=== PATIENT | female | born 1995 | race Caucasian/White ===

== ENCOUNTER 2021-08-10 10:05 | Observation (INO) | payer BC ==
[2021-08-10 10:49] VITALS: BP 108/57
[2021-08-10 11:22] LABS: Amphetamine,Urine NEGATIVE (NEGATIVE); Barbiturate,Urine NEGATIVE (NEGATIVE); Benzodiazepine,Urine NEGATIVE (NEGATIVE); Cocaine,Urine NEGATIVE (NEGATIVE); Methadone,Urine NEGATIVE (NEGATIVE); Opiate,Urine NEGATIVE (NEGATIVE); PCP,Urine NEGATIVE (NEGATIVE); THC,Urine NEGATIVE (NEGATIVE)
[2021-08-10 12:10] LABS: Basophil (Absolute #) 0.03 x10^3/uL (0-0.4); Eosinophil % 0.2 % (0.00-5.0); Eosinophil (Absolute #) 0.02 x10^3/uL (0-0.5); Hematocrit 32.8 % (35-47); Hemoglobin 10.6 g/dL (12.0-16.0); Lymphocytes % 8.4 % (24.0-44.0); Mean Cell Volume 90.6 fL (78-100); Mean Corpuscular Hemoglobin 29.3 pg (26-32); Mean Corpuscular Hgb Concent. 32.3 g/dL (32-36); Mean Platelet Volume 10.3 fL (7.5-11.0); Monocyte (Absolute #) 0.41 x10^3/uL (0.0-1.3); Monocytes % 3.8 % (0.0-12.0); Neutrophil % 86.7 % (36.0-66.0); Platelet Count 111 x10^3/uL (150-450); Red Blood Count 3.62 x10^6/uL (4.1-5.4); Red Cell Distribution Width 13.6 % (11.5-14.0); White Blood Count 10.7 x10^3/uL (4.0-10.5)
[2021-08-10 12:20] VITALS: PULSE 67
--- NOTE | 2021-08-10 12:36 | XRAY ---
Indication: Right upper quadrant pain, nausea, and vomiting. 22 weeks gestation. Two-dimensional gallbladder sonogram performed. Comparison: None Gallbladder normally distended without gallstones, wall thickening, or pericholecystic fluid. Common bile duct measures 4.4 mm. No intrahepatic biliary distention. Right kidney measures 11.6 cm in length and demonstrates mild hydronephrosis presumed related to . Remaining visualized liver and pancreas are sonographically unremarkable. Impression: Right-sided hydronephrosis presumed related to . Remaining gallbladder sonogram is negative.
[2021-08-10 12:37] LABS: ALKALINE PHOSPHATASE 70 U/L (38-126); AMYLASE 66 U/L (30-110); ANION GAP 11.8 MEQ/L (5-15); BLOOD UREA NITROGEN 10 mg/dL (7-17); CHLORIDE 102 mmol/L (98-107); Calcium 8.9 mg/dL (8.4-10.2); Carbon Dioxide 25 mmol/L (22-30); Creatinine 1 0.43 mg/dL (0.52-1.04); EST GLOMERULAR FILTRATION RATE > 60.0 ML/MIN; Glucose 88 mg/dL (74-106); LIPASE 38 U/L (23-300); Potassium 3.9 mmol/L (3.5-5.1); SGOT/AST 29 U/L (14-36); SGPT/ALT 32 U/L (0-35); SODIUM 136 mmol/L (137-145); Total Protein 6.8 g/dL (6.3-8.2)
[2021-08-10 13:39] LABS: Appearance CLOUDY (CLEAR); Bilirubin NEGATIVE (NEGATIVE); Dipstick done @ ? MAIN LAB; Glucose NEGATIVE (NEGATIVE); Ketones NEGATIVE (NEGATIVE); Nitrite NEGATIVE (NEGATIVE); Protein,Urine Dip NEGATIVE (Negative); RBC SMALL Ery/ul (0-5); Specific Gravity >=1.030 (1.005-1.025); Urobilinogen 0.2 mg/dL (0-1)
[2021-08-10 13:41] LABS: Bacteria RARE /HPF (NEGATIVE); Epithelial Cells RARE /HPF (FEW); Mucus SLIGHT /HPF (NEGATIVE)
[2021-08-10 13:44] LABS: Urine Cultured Indicated? YES
== END 2021-08-10 14:15 | disposition home or self-care (01) ==
LOC: OB 10:05
PROVIDERS: ADMIT Obstetrics & Gynecology; ATTEND Obstetrics & Gynecology
DX: Z34.02 Encounter for supervision of normal first pregnancy, second trimester (principal); Z3A.22 22 weeks gestation of pregnancy
CPT/HCPCS: 36415; 76705; 80053; 80307; 81015; 82150; 83690; 85025; 87086; G0378

== ENCOUNTER 2023-08-09 05:13 | Observation (INO) | payer BC ==
[2023-08-09 06:22] LABS: Amphetamine,Urine NEGATIVE (NEGATIVE); Barbiturate,Urine NEGATIVE (NEGATIVE); Benzodiazepine,Urine NEGATIVE (NEGATIVE); Cocaine,Urine NEGATIVE (NEGATIVE); Methadone,Urine NEGATIVE (NEGATIVE); Opiate,Urine NEGATIVE (NEGATIVE); PCP,Urine NEGATIVE (NEGATIVE); THC,Urine NEGATIVE (NEGATIVE)
[2023-08-09] MEDS ORDERED: Lactated Ringers 1,000 ML IV ONE (06:26)
[2023-08-09] MEDS ORDERED: BRETHINE 1 MG/ML ONE (06:26)
[2023-08-09] MEDS: Lactated Ringers 1,000 ML IV SCH (06:41)
[2023-08-09] MEDS: BRETHINE 1 MG/ML SQ ONE (06:41)
[2023-08-09 06:48] LABS: Absolute Neutrophil Ct (ANC) 6.88 x10^3/uL (1.4-6.9); BASOPHIL % 0.2 % (0.0-0.4); Basophil (Absolute #) 0.02 x10^3/uL (0-0.4); Eosinophil % 1.3 % (0.00-5.0); Eosinophil (Absolute #) 0.11 x10^3/uL (0-0.5); Hematocrit 31.1 % (35-47); Hemoglobin 10.8 g/dL (12.0-16.0); IMMATURE GRAN # 0.06 x10^3u/L (0.00-0.03); IMMATURE GRAN % 0.7 % (0.00-0.4); Lymphocyte (Absolute #) 0.92 x10^3/uL (1.0-4.6); Lymphocytes % 10.9 % (24.0-44.0); Mean Cell Volume 87.9 fL (78-100); Mean Corpuscular Hemoglobin 30.5 pg (26-32); Mean Corpuscular Hgb Concent. 34.7 g/dL (32-36); Mean Platelet Volume 10.9 fL (7.5-11.0); Monocyte (Absolute #) 0.47 x10^3/uL (0.0-1.3); Monocytes % 5.6 % (0.0-12.0); Neutrophil % 81.3 % (36.0-66.0); Platelet Count 92 x10^3/uL (150-450); Red Blood Count 3.54 x10^6/uL (4.1-5.4); Red Cell Distribution Width 13.2 % (11.5-14.0); White Blood Count 8.5 x10^3/uL (4.0-10.5)
[2023-08-09 07:23] LABS: ABO TYPING A; Antibody Screen NEGATIVE (NEGATIVE); RH TYPING POSITIVE
[2023-08-09 07:39] LABS: Slide Review 1 YES
[2023-08-09 08:28] LABS: Appearance TURBID (CLEAR); Bilirubin MODERATE (NEGATIVE); Glucose NEGATIVE (NEGATIVE); Ketones SMALL-15 (NEGATIVE)
[2023-08-09 08:29] LABS: Nitrite POSITIVE (NEGATIVE); Ph 5.5 (5-6); Protein,Urine Dip >=300 (Negative); RBC LARGE Ery/ul (0-5); Urobilinogen 1 mg/dL (0-1)
[2023-08-09 08:30] LABS: Bacteria Many /HPF (None Seen); Epithelial Cells None Seen /HPF (None Seen); Non-Squamous Epithelial Cells None Seen /HPF (None Seen); RBC >100 /HPF (0-5); WBC 51-100 /HPF (0-5)
[2023-08-09 08:31] LABS: ADD URINE CULTURE? YES (NO)
--- NOTE | 2023-08-09 08:33 | XRAY ---
Indication: Vaginal bleeding. Two-dimensional limited OB ultrasound performed. Comparison: None Single intrauterine in cephalic presentation. heart rate 149 BPM. Posterior fundal placenta without abnormal retroplacental fluid. Four-quadrant [place] is 13.5 cm. Comment: Preliminary report was given.
[2023-08-09 09:11] VITALS: RESP 16
--- NOTE | 2023-08-09 09:40 | PCM.HP ---
History of Present Illness - Chief Complaint Chief Complaint: Vaginal bleeding, ob check History of Present Illness: is a 28 year old female at 34 5/7 wks EGA who has been following with Dr Moya at [facility] for her , she awoke early this morning with a gush of fluid and thought she had SROM, then looked and it was all blood. she has some mild tightening of her uterus but no real pain, no recent trauma. 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 - Review of Systems Constitutional: No Fever, No Chills Respiratory: No Cough, No Short Of Breath Cardiac: No Chest Pain, No Edema, No Syncope Abdominal/Gastrointestinal: No Abdominal Pain, No Nausea, No Vomiting, No Diarrhea Genitourinary Symptoms: Vaginal Bleeding Skin: No Rash Medications & Allergies Home Medications: Home Medication List 21/Iron Fu/Folic Acid [ Complete Caplet] 1 dose PO DAILY 08/10/21 [History Confirmed 08/09/23] Allergies/Adverse Reactions: Allergies Allergy/AdvReac Type Severity Reaction Status Date / Time adhesive tape Allergy Mild Blisters Verified 08/09/23 06:01 - Past Medical History Past Medical History: Yes Neurological History: No Pertinent History ENT History: No Pertinent History Cardiac History: No Pertinent History Respiratory History: No Pertinent History Endocrine Medical History: No Pertinent History Musculoskelatal History: No Pertinent History GI Medical History: No Pertinent History History: No Pertinent History Pyscho-Social History: No Pertinent History Reproductive Disorders: No Pertinent History Comment: 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 Jugular removed for the shunt from left side. - Female History Are you now?: Yes - Past Surgical History Past Surgical History: Yes Neuro Surgical History: No Pertinent History Cardiac History: No Pertinent History Respiratory Surgery: No Pertinent History GI Surgical History: Other Other Surgical History: Yolk sac tumor with chemo at 3 YO, then Rexshunt surgery at 11 or 12 YO with removal of left jugular vein for the shunt. Upside down T scar on upper abdomen, lots of internal scar tissue per patient. - Social History Smoking Status: Never smoker Exposure to second hand smoke: No Alcohol: None Drug Use: none - Social Determinants of Health Will the patient participate in the screening: Yes Do you worry about a steady place to live?: No Do you have any problems with any of the following?: No known problems In the past 12 months,have you had to go without utilities?: No Have you or anyone in your house had to go without enough: No Transportation Issues: No Has anyone in your support network made you feel unsafe?: No Does the patient want assistance with any of the above?: No - Physical Exam Vital Signs: Vital Signs - 24 hr Temp Pulse Resp BP BP Pulse Ox 08/09/23 09:15 83 16 121/66 97 08/09/23 08:15 102 H 16 124/83 96 08/09/23 06:58 82 20 97 08/09/23 06:00 78 20 118/63 97 08/09/23 05:26 97.5 F 88 18 121/78 97 General Appearance: no apparent distress Neurologic Exam: alert, oriented x 3 Respiratory Exam: normal breath sounds, lungs clear, No respiratory distress Cardiovascular Exam: regular rate/rhythm, normal heart sounds, normal peripheral pulses Gastrointestinal/Abdomen Exam: soft (gravid) Pelvic Exam: other (SVE 2cm/70%/-1 no change from previously documented check, mild blood present during exam, no obvious active bleeding) Results - Labs Lab/Micro Results: Lab Results-Last 24 Hours 08/09/23 08/09/23 08/09/23 Range/Units 05:22 06:35 06:37 WBC 8.5 (4.0-10.5) x10^3/uL RBC 3.54 L (4.1-5.4) x10^6/uL Hgb 10.8 L (12.0-16.0) g/dL Hct 31.1 L (35-47) % MCV 87.9 (78-100) fL MCH 30.5 (26-32) pg MCHC 34.7 (32-36) g/dL RDW 13.2 (11.5-14.0) % Plt Count 92 L (150-450) x10^3/uL MPV 10.9 (7.5-11.0) fL Gran % 81.3 H (36.0-66.0) % Immature Gran % (Auto) 0.7 H (0.00-0.4) % Nucleat RBC Rel Count 0.0 (0.00-0.1) % Eos # (Auto) 0.11 (0-0.5) x10^3/uL Immature Gran # (Auto) 0.06 H (0.00-0.03) x10^3u/L Absolute Lymphs (auto) 0.92 L (1.0-4.6) x10^3/uL Absolute Monos (auto) 0.47 (0.0-1.3) x10^3/uL Absolute Nucleated RBC 0.00 (0.00-0.01) x10^3u/L Lymphocytes % 10.9 L (24.0-44.0) % Monocytes % 5.6 (0.0-12.0) % Eosinophils % 1.3 (0.00-5.0) % Basophils % 0.2 (0.0-0.4) % Absolute Granulocytes 6.88 (1.4-6.9) x10^3/uL Basophils # 0.02 (0-0.4) x10^3/uL Urine Color RED A (YELLOW) Urine Appearance TURBID (CLEAR) Urine pH 5.5 (5-6) Ur Specific [place] 1.020 (1.005-1.025) POC Urine Protein Conf >=300 A (Negative) Urine Ketones SMALL-15 A (NEGATIVE) Urine Nitrite POSITIVE A (NEGATIVE) Urine Bilirubin MODERATE A (NEGATIVE) Urine Urobilinogen 1 A (0-1) mg/dL Urine Leukocytes LARGE A (NEGATIVE) Urine RBC LARGE A (0-5) Javier/ul Urine Microscopic RBC >100 A (0-5) /HPF Urine Microscopic WBC 51-100 A (0-5) /HPF Ur Epithelial Cells None Seen (None Seen) /HPF U Non-Squamous Epi Cells None Seen (None Seen) /HPF Urine Bacteria Many A (None Seen) /HPF Urine Culture Reflexed YES (NO) Urine Glucose NEGATIVE (NEGATIVE) mg/dL Urine Opiates Level NEGATIVE (NEGATIVE) Ur Methadone NEGATIVE (NEGATIVE) Urine Barbiturates NEGATIVE (NEGATIVE) Ur Phencyclidine (PCP) NEGATIVE (NEGATIVE) Urine Amphetamine NEGATIVE (NEGATIVE) U Benzodiazepine Level NEGATIVE (NEGATIVE) Urine Cocaine NEGATIVE (NEGATIVE) Urine Marijuana (THC) NEGATIVE (NEGATIVE) Slides for Path Review YES ABO Group Rh Factor Antibody Screen (NEGATIVE) 08/09/23 Range/Units 06:37 WBC (4.0-10.5) x10^3/uL RBC (4.1-5.4) x10^6/uL Hgb (12.0-16.0) g/dL Hct (35-47) % MCV (78-100) fL MCH (26-32) pg MCHC (32-36) g/dL RDW (11.5-14.0) % Plt Count (150-450) x10^3/uL MPV (7.5-11.0) fL Gran % (36.0-66.0) % Immature Gran % (Auto) (0.00-0.4) % Nucleat RBC Rel Count (0.00-0.1) % Eos # (Auto) (0-0.5) x10^3/uL Immature Gran # (Auto) (0.00-0.03) x10^3u/L Absolute Lymphs (auto) (1.0-4.6) x10^3/uL Absolute Monos (auto) (0.0-1.3) x10^3/uL Absolute Nucleated RBC (0.00-0.01) x10^3u/L Lymphocytes % (24.0-44.0) % Monocytes % (0.0-12.0) % Eosinophils % (0.00-5.0) % Basophils % (0.0-0.4) % Absolute Granulocytes (1.4-6.9) x10^3/uL Basophils # (0-0.4) x10^3/uL Urine Color (YELLOW) Urine Appearance (CLEAR) Urine pH (5-6) Ur Specific [place] (1.005-1.025) POC Urine Protein Conf (Negative) Urine Ketones (NEGATIVE) Urine Nitrite (NEGATIVE) Urine Bilirubin (NEGATIVE) Urine Urobilinogen (0-1) mg/dL Urine Leukocytes (NEGATIVE) Urine RBC (0-5) Javier/ul Urine Microscopic RBC (0-5) /HPF Urine Microscopic WBC (0-5) /HPF Ur Epithelial Cells (None Seen) /HPF U Non-Squamous Epi Cells (None Seen) /HPF Urine Bacteria (None Seen) /HPF Urine Culture Reflexed (NO) Urine Glucose (NEGATIVE) mg/dL Urine Opiates Level (NEGATIVE) Ur Methadone (NEGATIVE) Urine Barbiturates (NEGATIVE) Ur Phencyclidine (PCP) (NEGATIVE) Urine Amphetamine (NEGATIVE) U Benzodiazepine Level (NEGATIVE) Urine Cocaine (NEGATIVE) Urine Marijuana (THC) (NEGATIVE) Slides for Path Review ABO Group A Rh Factor POSITIVE Antibody Screen NEGATIVE (NEGATIVE) - Radiology Impressions Radiology Exams & Impressions: Radiology Procedures Category Date Time Status OB LIMITED [US] Urgent Exams 08/09/23 05:35 Completed Assessment/Plan (1) contractions Current Visit: Yes Status: Acute Assessment & Plan: fluids were given, terb x 1 improved for a short period. no progressive cervical dilation. will try po nifedipine at this time and continue to monitor Code(s): O47.00 - FALSE LABOR BEFORE 37 COMPLETED WEEKS OF GEST, UNSP TRI (2) Third trimester bleeding Current Visit: Yes Status: Acute Assessment & Plan: ultrasound shows normal placenta, no previa and no abruption. [place] 13. heart tracing is reactive and category 1 Code(s): O46.93 - ANTEPARTUM HEMORRHAGE, UNSPECIFIED, THIRD TRIMESTER (3) Thrombocytopenia Current Visit: Yes Status: Acute
[2023-08-09] MEDS: PROCARDIA 10 MG PO STA (09:57)
[2023-08-09] MEDS ORDERED: Lactated Ringers 1,000 ML IV SCH (10:00)
[2023-08-09] MEDS: Celestone Soluspan 6MG/ML IM STA (10:04)
[2023-08-09 10:28] VITALS: TEMP 97.9
[2023-08-09] MEDS ORDERED: Magnesium Sulfate 40 Gm/1000 Ml H2O Premix*** 1,000 ML IV ONE (12:14)
[2023-08-09] MEDS: Magnesium Sulfate 40 Gm/1000 Ml H2O Premix*** 1,000 ML IV SCH (12:36)
[2023-08-09 15:28] VITALS: BP 120/72; PULSE 88; O2SAT 96
== END 2023-08-09 13:58 | disposition home or self-care (01) ==
LOC: OB 05:13
PROVIDERS: ADMIT Family Medicine; ATTEND Family Medicine
DX: Z34.83 Encounter for supervision of other normal pregnancy, third trimester (principal); Z3A.34 34 weeks gestation of pregnancy
CPT/HCPCS: 36415; 76815; 80307; 81015; 83735; 85025; 86850; 86900; 86901; 87086; 96372; G0378; G0379; J0702; A9270-GY